=== PATIENT | male | born 1955 | race Caucasian/White ===

== ENCOUNTER 2016-10-08 06:25 | Inpatient (IN) | payer BC ==
[2016-09-30 13:46] LABS: HEMATOCRIT 40.4 % (40.0-51.0); HEMOGLOBIN 13.9 g/dL (13.6-17.8)
[2016-09-30 13:47] LABS: BUN (BLOOD UREA NITROGEN) 12 MG/DL (6-23); CALCIUM, SERUM 8.6 MG/DL (8.5-10.4); CHLORIDE, SERUM 108 MMOL/L (96-112); CO2 (CARBON DIOXIDE) 25 MMOL/L (24-34); CREATININE 1.01 MG/DL (0.70-1.30); GFR AFRICAN AMERICAN 93 ML/MIN (>=60); GFR NON AFRICAN AMERICAN 80 ML/MIN (>=60); GLUCOSE, SERUM 93 MG/DL (60-99); SODIUM, SERUM 141 MMOL/L (135-148)
--- NOTE | ~2016-10-08 | OP ---
Record Of Operation [facility] [address] [place]. [address] NAME: MAKSIM GAFFNEY : 53 STATUS : ADM IN PAT#: [id number] AGE: 60 ADM/REG DATE : 10/08/16 MR#: [id number] REPORT SERV DATE: 10/08/16 DICTATED BY: ANTON CORBETT DATE: 10/08/16 REPORT STATUS : Draft TRANSCRIBED BY: MODL DATE: 10/08/16 DATE OF PROCEDURE: 10/08/2016 PREOPERATIVE DIAGNOSIS: Prostate cancer. POSTOPERATIVE DIAGNOSIS: Prostate cancer. PROCEDURES: Robotic-assisted laparoscopic radical prostatectomy with right laparoscopic pelvic lymph node dissection. SURGEON: Anton Corbett M.D. OPTOMETRIC AIDE: RICHI Eduardo. ANESTHESIA: General. PREOPERATIVE INDICATIONS: A 60-year-old male with a negative family history of prostate cancer, presented with a PSA of 6.9. This was associated with a palpable nodule on the right. An MRI identified a right posterior apex index lesion. There was no evidence of T3 disease. MRI-targeted biopsies identified a [place] 7, 4+3 prostate cancer. There was loss of P10 suppression and over-expression of ERG fusion. The bone scan was negative. After reviewing his options, risks, alternatives, and benefits, he elected surgical management with a robotic approach. DESCRIPTION OF OPERATIVE PROCEDURE: Following adequate general anesthesia, the patient was placed in a modified lithotomy position, well padded, and secured to the table and placed in a steep Trendelenburg position. He was noted to be safely secured to the table and was returned to a level position where he was prepped and draped in usual sterile fashion. He was noted to have a narrow meatus. The meatus was gently dilated and a 16-Filipino catheter easily placed into the bladder from the operative field. The pneumoperitoneum was achieved with a Veress needle. A 12 mm port was placed in the left upper quadrant with the Optiview system. The camera was placed into the abdomen. The abdomen was inspected. There were no abnormal findings. Under direct vision, the four robotic ports were placed, as well as a left lower quadrant 5 mm port. The patient was returned to a Trendelenburg position and docked to the robot. The bladder was taken down by incising laterally along the median umbilical ligaments to the level of the vas deferens bilaterally with the electrocautery criss. The space of Retzius was developed bluntly. Fat was dissected off the anterior surface of the prostate sharply. The fat was sent for separate pathology review in view of his apical disease. The endopelvic fascia was incised bilaterally and the levator muscle swept off the lateral surface of the prostate bilaterally. The dorsal vein complex was dissected out, controlled, and divided with an endovascular CRISTIN stapler. The bladder neck was incised at its junction with the base of the prostate with electrocautery spatula. The bladder was entered. The catheter was grasped with a ProGrasp Record Of Operation [facility] [address] [place]. [address] NAME: MAKSIM GAFFNEY : 53 STATUS : ADM IN PAT#: [id number] AGE: 60 ADM/REG DATE : 10/08/16 MR#: [id number] REPORT SERV DATE: 10/08/16 DICTATED BY: ANTON CORBETT DATE: 10/08/16 REPORT STATUS : Draft TRANSCRIBED BY: MODL DATE: 10/08/16 grasper and used for anterior retraction the prostate. The posterior bladder neck was developed and incised with electrocautery spatula. A plane was bluntly developed between the posterior bladder neck and prostate. The anterior Denonvilliers fascia was incised to expose the vas deferens and seminal vesicles. The vas deferens were dissected out bluntly, divided sharply, and the ends of the vas deferens grasped with the ProGrasp grasper for additional anterior retraction on the prostate. The seminal vesicles were dissected out bluntly. Their blood supply controlled with interlocking clips and then divided sharply at their base. The bladder neck was inspected and did require some minor reconstruction with two [id number] 3-0 Vicryl sutures at the 3 and 9 o'clock positions taking care to avoid the ureteral orifices. Posterior Denonvilliers fascia was incised and a plane was bluntly developed between the rectum and prostate. The levator fascia was incised bilaterally and the neurovascular bundles bluntly and easily dissected away from the posterolateral surface of the prostate bilaterally. The pedicles were controlled with interlocking clips and divided sharply with a round-tip scissors. The urethra was dissected out with the round-tip scissors. The dorsal vein complex was secured to the pubic periosteum with a [id number] 2-0 Monocryl suture. The urethra was then divided sharply at the prostatourethral junction. The catheter was withdrawn. The posterior urethra was divided, as well as the remaining apical attachments and the prostate was freed. A right laparoscopic pelvic lymph node dissection was performed with the margins of dissection via the anterior surface of the external iliac vein, the bifurcation of the external and internal iliac artery and the pelvic sidewall, both anterior and posterior to the obturator nerve. Margins were controlled with interlocking clips and the specimen divided sharply with a round-tip scissors. The earl specimen and prostate were placed in an EndoCatch sac and placed out of the view of the operative field. The pelvis was irrigated with sterile water and antibiotic solution carefully inspected. There was excellent hemostasis and no apparent rectal injury. Posterior Denonvilliers fascia was reapproximated to the posterior urethral plate with a running 3-0 V-Loc suture in a Silver stitch fashion. The urethrovesical anastomosis was performed with a running 3-0 V- Loc suture over 20-Filipino catheter. The balloon was filled with 10 mL of sterile water. The bladder was irrigated with sterile water and there was a watertight anastomosis. A 19 Garth drain was passed through one of the robotic ports and placed into the pelvis. The port was removed, its exit site demonstrating good hemostasis. The drain was fixed to the skin with 2-0 Prolene suture. The patient was de-docked from the robot and returned to a level position. The remaining trocars were removed under direct vision, their exit sites demonstrating good hemostasis. The periumbilical port was used to guide a transverse fascial incision to allow intact retrieval of the specimen. This was closed with six interrupted #1 Ethibond sutures. The periumbilical wound and port sites were irrigated with antibiotic solution and skin edges reapproximated with skin clips. The drain was left to grenade suction. The catheter was left to gravity drainage. Bandages were applied. The procedure was concluded. He was awakened from his anesthesia, had tolerated it well, and transferred to the recovery room in satisfactory condition. Record Of Operation [facility] [address] [facility] [place]. [address] NAME: MAKSIM GAFFNEY : 53 STATUS : ADM IN [facility]#: [id number] AGE: 60 ADM/REG DATE : 10/08/16 MR#: [id number] REPORT SERV DATE: 10/08/16 DICTATED BY: ANTON CORBETT DATE: 10/08/16 REPORT STATUS : Draft TRANSCRIBED BY: LYLY DATE: 10/08/16 ABHINAV/LYLY Anton Corbett M.D. / [id number] CC: Anton Corbett M.D.
[~2016-10-08 06:25] MED LIST: *DENIES; NO MEDICATIONS; OTC NASAL SPRAY
[2016-10-08 13:27] LABS: CREATININE 1.22 MG/DL (0.70-1.30); POTASSIUM, SERUM 5.1 MMOL/L (3.5-5.3)
== END 2016-10-09 14:22 | disposition home or self-care (01) | DRG 708 ==
LOC: SDC/OF 06:25 → PACU 12:38 → 4SO 14:52
PROVIDERS: Urology
PROC: 0VT34ZZ Resection of Bilateral Seminal Vesicles, Percutaneous Endoscopic Approach (ICD-10-PCS; 2016-10-08)
PROC: 07BC3ZZ Excision of Pelvis Lymphatic, Percutaneous Approach (ICD-10-PCS; 2016-10-08)
PROC: 8E0W4CZ Robotic Assisted Procedure of Trunk Region, Percutaneous Endoscopic Approach (ICD-10-PCS; 2016-10-08)
PROC: 0VT04ZZ Resection of Prostate, Percutaneous Endoscopic Approach (ICD-10-PCS; principal; 2016-10-08 07:30)
DX: C61 Malignant neoplasm of prostate (principal); Z99.81 Dependence on supplemental oxygen; G47.33 Obstructive sleep apnea (adult) (pediatric); Z98.890 Other specified postprocedural states
CPT/HCPCS: 80048; 82565; 84132; 85014; 85018; 88304; 88305; 88307; 88309; 88341; 88342; 88360; 93005; A9270-GY; J0690; J1885; J2250; J2405; J2710; J2795; J3010